=== PATIENT | female | born 1980 | race Asian ===

== ENCOUNTER 2016-09-11 12:34 | Outpatient (CLI) | payer BC | END 2016-09-11 12:35 | disposition home or self-care (01) | DX: Z36 Encounter for antenatal screening of mother (principal) ==

== ENCOUNTER 2016-09-30 09:25 | Outpatient (CLI) | payer BC | END 2016-09-30 09:26 | disposition home or self-care (01) | DX: Z36 Encounter for antenatal screening of mother (principal) ==

== ENCOUNTER 2016-10-02 07:53 | Outpatient (CLI) | payer BC | END 2016-10-02 07:54 | disposition home or self-care (01) | DX: Z36 Encounter for antenatal screening of mother (principal); O99.810 Abnormal glucose complicating pregnancy ==

== ENCOUNTER 2016-12-16 08:00 | Outpatient (CLI) | payer BC | END 2016-12-16 23:59 | disposition home or self-care (01) | DX: Z36 Encounter for antenatal screening of mother (principal) ==

== ENCOUNTER 2016-12-23 14:30 | Outpatient (CLI) | payer BC | END 2016-12-23 14:31 | disposition home or self-care (01) | DX: O34.219 Maternal care for unspecified type scar from previous cesarean delivery (principal) ==

== ENCOUNTER 2017-01-06 10:16 | Outpatient (CLI) | payer BC | END 2017-01-06 10:17 | disposition home or self-care (01) | DX: Z01.812 Encounter for preprocedural laboratory examination (principal); Z30.2 Encounter for sterilization ==

== ENCOUNTER 2017-01-07 04:51 | Inpatient (IN) | payer BC ==
[2017-01-07] MEDS ORDERED: SODIUM CHLORIDE FLUSH 0.9% 10 ML SYRINGE IVP ONE ×3 (05:30→16:27)
[2017-01-07] MEDS ORDERED: LACTATED RINGERS 1,000 ML IV SCH ×2 (06:00→10:00)
[2017-01-07] MEDS ORDERED: ceFAZolin 2 GM/50 ML 50 ML IV SCH (06:30)
[2017-01-07] MEDS ORDERED: PROPOFOL 200 MG/20 ML VIAL IVP ONE (07:10)
[2017-01-07] MEDS ORDERED: OXYTOCIN 10 UNIT/ML VIAL IV ONE (07:10)
[2017-01-07] MEDS ORDERED: METHYLERGONOVINE 0.2 MG/ML AMP IVP ONE (07:10)
[2017-01-07] MEDS ORDERED: ONDANSETRON 4 MG/2 ML VIAL IVP ONE (07:10)
[2017-01-07] MEDS ORDERED: MORPHINE PF 5 MG/10 ML AMP EP ONE (07:10)
[2017-01-07] MEDS ORDERED: CITRIC ACID/SODIUM CITRATE 15 ML UDC PO ONE ×2 (07:25→07:27)
[2017-01-07] MEDS ORDERED: LACTATED RINGERS 1,000 ML IV ONE ×3 (07:33→09:55)
[2017-01-07] MEDS ORDERED: OXYTOCIN/LACTATED RINGERS 250 ML IV ONE (09:49)
[2017-01-07] MEDS ORDERED: ONDANSETRON 4 MG/2 ML VIAL IVP PRN (09:49)
[2017-01-07] MEDS ORDERED: diphenhydrAMINE 25 MG CAPSULE PO PRN (09:49)
[2017-01-07] MEDS: ACETAMINOPHEN 500 MG TABLET PO SCH ×2 (11:10→20:39)
[2017-01-07] MEDS: KETOROLAC 30 MG/ML VIAL IV SCH ×3 (11:12→23:15)
[2017-01-07] MEDS: SIMETHICONE CHEW 80 MG TABLET PO SCH ×2 (13:56→20:38)
[2017-01-07] MEDS: DOCUSATE SODIUM 100 MG CAPSULE PO SCH (20:39)
[2017-01-08] MEDS: ACETAMINOPHEN 500 MG TABLET PO SCH ×3 (04:50→21:37)
[2017-01-08] MEDS: KETOROLAC 30 MG/ML VIAL IV SCH (04:50)
[2017-01-08] MEDS: DOCUSATE SODIUM 100 MG CAPSULE PO SCH ×2 (08:51→20:37)
[2017-01-08] MEDS: SIMETHICONE CHEW 80 MG TABLET PO SCH ×3 (08:51→20:37)
[2017-01-08] MEDS: oxyCODONE 5 MG TABLET PO PRN ×4 (08:51→20:37)
[2017-01-08] MEDS: IBUPROFEN 800 MG TABLET PO SCH ×3 (10:51→23:48)
[2017-01-09] MEDS: oxyCODONE 5 MG TABLET PO PRN ×3 (00:44→09:48)
[2017-01-09] MEDS: IBUPROFEN 800 MG TABLET PO SCH (05:31)
[2017-01-09] MEDS: ACETAMINOPHEN 500 MG TABLET PO SCH (05:31)
[2017-01-09] MEDS: SIMETHICONE CHEW 80 MG TABLET PO SCH ×2 (09:16→09:48)
[2017-01-09] MEDS: DOCUSATE SODIUM 100 MG CAPSULE PO SCH (09:48)
== END 2017-01-09 12:00 | disposition home or self-care (01) | DRG 766 ==
PROC: 0UT70ZZ Resection of Bilateral Fallopian Tubes, Open Approach (ICD-10-PCS; 2017-01-07)
PROC: 10D00Z1 Extraction of Products of Conception, Low, Open Approach (ICD-10-PCS; principal; 2017-01-07 07:30)
DX: O34.211 Maternal care for low transverse scar from previous cesarean delivery (principal); N85.8 Other specified noninflammatory disorders of uterus; Z3A.39 39 weeks gestation of pregnancy; Z37.0 Single live birth; Z30.2 Encounter for sterilization

== ENCOUNTER 2020-09-21 10:06 | Outpatient (CLI) | payer BC ==
--- NOTE | 2020-09-21 14:35 | Ultrasound Report ---
PROCEDURE: Pelvic w/Transvaginal INDICATIONS: MITTELSCHMERZ TECHNIQUE: Real-time scanning was performed of the pelvic organs, with image documentation. Additional endovagi nal scanning was necessary due to incomplete visualization of the adnexal and endometrial structures by transabdominal scanning. COMPARISON: None. FINDINGS: No pathologic free abdominal or pelvic fluid. Uterus: Uterus is normal in size at 8.0 x 3.9 x 4.9 cm. The endometrium measures 5 mm in combined t hickness. Ovaries: Right ovary measures 22 x 10 x 13 mm. Focus of decreased echogenicity is identified measuri ng 9 x 5 x 8 mm. Left ovary measures 27 x 9 x 11 mm. IMPRESSION: 1. Subcentimeter focus of decreased echogenicity within the right ovary. This could represent a promi nent follicle versus resolving cyst. Reviewed by: Emy Avitia MD on 09/21/2020 2:34 PM PST Approved by: Emy Avitia MD on 09/21/2020 2:34 PM PST Station ID: [id number]
== END 2020-09-21 10:07 | disposition home or self-care (01) ==
LOC: DI 10:06
PROVIDERS: ATTEND Obstetrics & Gynecology
DX: R93.89 Abnormal findings on diagnostic imaging of other specified body structures (principal)

== ENCOUNTER 2021-02-02 11:19 | Outpatient (CLI) | payer BC ==
--- NOTE | 2021-02-02 12:49 | Ultrasound Report ---
PROCEDURE: Abdomen Complete INDICATIONS: LLQ ABD PAIN TECHNIQUE: Real-time scanning was performed of the abdominal and retroperitoneal organs, with image documentatio n. COMPARISON: None. FINDINGS: Liver: Liver is normal in size and homogeneous in echotexture. Gallbladder: Has been resected Biliary ducts: Intrahepatic bile ducts are non-dilated. Extrahepatic bile duct caliber measures 4.0 mm. Normal is 6-7 mm or less in diameter, or 10 mm or less post-cholecystectomy. Pancreas: Visualized portions of the pancreas are sonographically normal. Spleen: Spleen is normal in size and homogeneous in echotexture. Kidneys: Kidneys are normal in size and echotexture. Right kidney measures 9.9 cm long; left kidney measures 10.3 cm long. No hydronephrosis or nephrolithiasis. No solid masses. Aorta: Visualized aorta is normal in caliber at less than 3 cm. Iliacs: Proximal common iliac arteries are normal in caliber at less than 2.5 cm. IVC: Intrahepatic inferior vena cava is patent. Miscellaneous: No free abdominal fluid. IMPRESSION: No source of abdominal pain is found. The patient complains predominantly of epigastric pain but the left lower quadrant region also was evaluated given history of intermittent pain. No source of this s ymptomatology is found. Depending on the clinical status follow-up by CT scanning may become necessar y. Reviewed by: Gary Mcmillan MD on 02/02/2021 11:47 AM CALV[place] Approved by: Gary Mcmillna MD on 02/02/2021 11:47 AM CALVIN Station ID: [id number]
== END 2021-02-02 11:20 | disposition home or self-care (01) ==
LOC: DI 11:19
PROVIDERS: ATTEND Internal Medicine
DX: R10.32 Left lower quadrant pain (principal)

== ENCOUNTER 2022-08-22 09:57 | Outpatient (CLI) | payer BC ==
--- NOTE | 2022-08-22 10:56 | Ultrasound Report ---
PROCEDURE: Pelvic w/Transvaginal INDICATIONS: AMENORRHEA TECHNIQUE: Real-time scanning was performed of the pelvic organs, with image documentation. Additional endovagi nal scanning was necessary due to incomplete visualization of the adnexal and endometrial structures by transabdominal scanning. COMPARISON: Pelvic ultrasound 09/21/2020 FINDINGS: Uterus: Uterus is retroverted and normal in size at 7.8 x 3.6 x 5.6 cm. The myometrium is homogeneo us. The endometrium measures 10 mm in combined thickness. Ovaries: The right ovary measures 2.0 x 1.5 x 1.7 cm, with a calculated ovarian volume of 2.7 cc. A right ovarian follicle seen measuring up to 1.5 cm in size. The left ovary measures 2.3 x 0.7 x 1.7 cm, with a calculated ovarian volume of 0.5 cc. The ovaries have a normal sonographic appearance. L ess than 12 follicles can be seen in each ovary. No adnexal masses are seen. Other: Trace free fluid is most likely physiologic. IMPRESSION: No significant sonographic abnormality is seen in the pelvis. Reviewed by: Igor Renner MD on 08/22/2022 10:55 AM PST Approved by: Igor Renner MD on 08/22/2022 10:55 AM PST Station ID: [id number]
== END 2022-08-22 09:58 | disposition home or self-care (01) ==
LOC: DI 09:57
PROVIDERS: ATTEND Obstetrics & Gynecology
DX: N91.2 Amenorrhea, unspecified (principal)

== ENCOUNTER 2022-08-22 09:59 | Outpatient (CLI) | payer BC ==
--- NOTE | 2022-08-26 10:16 | Mammography Report ---
BILATERAL DIGITAL SCREENING MAMMOGRAM 3D/2D WITH EXAGGERATED CC: 08/22/2022 CLINICAL: Routine screening. Comparison is made to exam dated: 11/08/2013 mammogram - [facility]. There are scattered areas of fibroglandular density in both breasts (category b / 25%-50% glandular t issue). No significant masses, calcifications, or other findings are seen in either breast. There has been no significant interval change. IMPRESSION: NEGATIVE There is no mammographic evidence of malignancy. A 1 year screening mammogram is recommended. Based on the Tyrer Cuzick model (a risk assessment model) the patients lifetime risk is 7.0% and her 10 year risk is 0.9%. According to the ACR, ACS, and NCCN guidelines, an annual breast MRI exam [place] with mammogram is recommended if the patients lifetime risk is 20% or greater. This exam was interpreted at Station ID: [id number]. NOTE: For mammograms, a report in lay terms will be sent to the patient. Approximately 15% of breast malignancies will not be visualized mammographically. In the management of a palpable breast mass, a negative mammogram must not discourage biopsy of a clinically suspicious lesion. Electronically Signed By: Lee Ann haney/salty:08/22/2022 12:38:37 ACR BI-RADS Category 1: Negative 3341F PARENCHYMAL PATTERN: (A) - The breast(s) demonstrate(s) scattered fibroglandular densities. BI-RADS CATEGORY: (1) - 1 RECOMMENDATION: (ANNUAL) - Recommend routine annual screening mammography. [id number] 1 year screening LATERALITY: (B)
== END 2022-08-22 10:00 | disposition home or self-care (01) ==
LOC: DI 09:59
PROVIDERS: ATTEND Obstetrics & Gynecology
DX: Z12.31 Encounter for screening mammogram for malignant neoplasm of breast (principal)

== ENCOUNTER 2022-12-29 09:17 | Outpatient (CLI) | payer BC ==
--- NOTE | 2022-12-29 12:58 | XRAY Report ---
PROCEDURE: Lumbar Spine 2 View INDICATIONS: LOWER BACK PX TECHNIQUE: 2 views of the lumbar spine were acquired. COMPARISON: None. FINDINGS: Bones: 5 [id number] vertebrae are present. There is normal bony alignment. No vertebral body c ompression fractures. No suspicious bony lesions. Trace osteophytosis is present at L3-4. Soft tissues: Overlying bowel gas pattern is normal. No suspicious soft tissue calcifications. IMPRESSION: Trace degenerative change. No compression deformities. Reviewed by: Lee Ann Colon MD on 12/29/2022 12:57 PM PDT Approved by: Lee Ann Colon MD on 12/29/2022 12:57 PM PDT Station ID: [id number]
== END 2022-12-29 09:18 | disposition home or self-care (01) ==
LOC: DI 09:17
PROVIDERS: ATTEND Internal Medicine
DX: M47.816 Spondylosis without myelopathy or radiculopathy, lumbar region (principal)

== ENCOUNTER 2023-08-26 09:52 | Outpatient (CLI) | payer BC, MEDICAID ==
--- NOTE | 2023-08-27 08:27 | Mammography Report ---
BILATERAL DIGITAL SCREENING MAMMOGRAM 3D/2D: 08/26/2023 CLINICAL: Routine screening. Comparison is made to exams dated: 08/22/2022 mammogram and 11/08/2013 mammogram - [facility]. There are scattered areas of fibroglandular density in both breasts (category b / 25%-50% glandular t issue). No significant masses, calcifications, or other findings are seen in either breast. There has been no significant interval change. IMPRESSION: NEGATIVE There is no mammographic evidence of malignancy. A 1 year screening mammogram is recommended. Based on the Tyrer Cuzick model (a risk assessment model) the patients lifetime risk is 7.1% and her 10 year risk is 1.0%. According to the ACR, ACS, and NCCN guidelines, an annual breast MRI exam [place] with mammogram is recommended if the patients lifetime risk is 20% or greater. This exam was interpreted at Station ID: [id number]. NOTE: For mammograms, a report in lay terms will be sent to the patient. Approximately 15% of breast malignancies will not be visualized mammographically. In the management of a palpable breast mass, a negative mammogram must not discourage biopsy of a clinically suspicious lesion. Electronically Signed By: Igor humphreys/salty:08/26/2023 12:52:39 letter sent: No_Letter ACR BI-RADS Category 1: Negative 3341F PARENCHYMAL PATTERN: (A) - The breast(s) demonstrate(s) scattered fibroglandular densities. BI-RADS CATEGORY: (1) - 1 Mammogram [id number] 1 year screening LATERALITY: (B)
== END 2023-08-26 09:53 | disposition home or self-care (01) ==
LOC: DI 09:52
PROVIDERS: ATTEND Obstetrics & Gynecology
DX: Z12.31 Encounter for screening mammogram for malignant neoplasm of breast (principal); R92.323 Mammographic fibroglandular density, bilateral breasts